=== PATIENT | male | born 1970 | race Caucasian/White ===

== ENCOUNTER 2018-06-04 10:05 | Emergency (ER) | payer BC ==
[~2018-06-04] VITALS: Ht 175.3 cm; Wt 100.2 kg
[2018-06-04 10:49] VITALS: BP 148/99
--- NOTE | 2018-06-04 10:54 | RAD ---
3 view study of the third digit of the left hand Clinical indications: Third digit got stuck in power tool today. Laceration injury. FINDINGS: Laceration injury of the distal aspect of the third digit is seen. No fracture or dislocation or lytic process is evident. IMPRESSION: Laceration injury without fracture. Electronically signed by: Rafi Ruvalcaba MD (06/04/2018 10:50 AM) [id number]
--- NOTE | 2018-06-04 11:18 | PHYS DOC ---
Past Medical History Past Medical History: Hypertension Past Surgical History: No Surgical History Alcohol Use: Occasionally Drug Use: Marijuana Adult General Chief Complaint Chief Complaint: FINGER INJURY HPI HPI 47-year-old male presents to ER with complaints of left middle finger injury. Patient reports this morning around 9 AM he smashed his finger between 2 objects and pulled back causing the skin on the tip of his finger to be pulled off. Patient denies any other injury. Patient is not sure if his tetanus is up-to-date and the past 5 years. Patient is right hand dominant. Patient denies any medications prior to arrival. Review of Systems Review of Systems Cardiovascular: No additional information not addressed in HPI [] GI: Denies nausea, vomiting Musculoskeletal: Reports pain tip of lt middle finger Integument: Reports avulsion type injury to tip of lt middle finger Neurologic: Denies focal weakness or sensory changes [] All other systems were reviewed and found to be within normal limits, except as documented in this note. Current Medications Current Medications Current Medications Medications (Trade) Dose Ordered Sig/Trung Start Time Stop Time Status Last Admin Dose Admin Acetaminophen/ Hydrocodone Bitart (Lortab 5/325) 1 tab 1X ONCE 06/04/18 11:30 06/04/18 11:31 DC 06/04/18 11:26 1 TAB Diphtheria/ Tetanus/Acell Pertussis (Boostrix) 0.5 ml ONCE ONCE 06/04/18 11:30 06/04/18 11:31 DC 06/04/18 11:27 0.5 ML Ibuprofen (Motrin) 800 mg 1X ONCE 06/04/18 11:30 06/04/18 11:31 DC 06/04/18 11:26 800 MG Lidocaine HCl (Lidocaine 1% 20ml Vial) 20 ml 1X ONCE 06/04/18 11:30 06/04/18 11:31 DC 06/04/18 11:34 20 ML Allergies Allergies Allergies Coded Allergies Type Severity Reaction Last Updated Verified No Known Drug Allergies 06/04/18 No Physical Exam Physical Exam Constitutional: Well developed, well nourished, no acute distress, non-toxic appearance. [] HENT: Normocephalic, atraumatic, oropharynx moist, nose normal. [] Eyes: Pupils equal, conjunctiva normal, no discharge. [] Neck: Normal range of motion, supple Cardiovascular:Heart rate regular Lungs & Thorax: Resp. equal/nonlabored. [] Skin: Warm, dry Extremities: No cyanosis, no clubbing, ROM lt hand/wrist, no edema. 2+ radial lt upper extremity. Avulsion to distal tip of lt middle finger with tip of nail bed removal- rest of nail still intact to nailbed- full ROM of lt fingers. Neurologic: Alert and oriented X 3, normal motor function, normal sensory function, no focal deficits noted. [] Psychologic: Affect normal, judgement normal, mood normal. [] Laceration Repair by me: 1210 Digital block Anesthesia: 1% lidocaine dorsal surface bilat. webbing of middle finger- 1% lidocaine 1 mL local injection at distal tip of finger as pt had some pain during wound cleanse following digital block Location: Lt distal tip of middle finger/distal edge of nail Tendon/Joint/Nerves: No injury- flexor tendon intact against resistance lt middle finger- full flexion Foreign body: None detected after copious irrigation and exploration Technique: No wound repair- avulsion wound distal tip of lt middle finger and end of nail- rest of nail still intact Patient's bleeding was easily controlled in the department and there is no indication of anemia. No evidence of compartment syndrome, neurologic injury, vascular injury, open joint, tendon laceration, or foreign body. Patient is appropriate for outpatient follow up. 24-48 hour wound check. Current Patient Data Vital Signs Vital Signs Date Time Temp Pulse Resp B/P (MAP) Pulse Ox O2 Delivery O2 Flow Rate FiO2 06/04/18 11:26 18 06/04/18 10:49 98.1 78 148/99 (115) 98 Room Air 98.1 EKG EKG [] Radiology/Procedures Radiology/Procedures PROCEDURE: FINGER(S) LEFT 3 view study of the third digit of the left hand Clinical indications: Third digit got stuck in power tool today. Laceration injury. FINDINGS: Laceration injury of the distal aspect of the third digit is seen. No fracture or dislocation or lytic process is evident. IMPRESSION: Laceration injury without fracture. Electronically signed by: Enma Ruvalcaba MD (06/04/2018 10:50 AM) [place] [id number] DICTATED and SIGNED BY: ENMA RUVALCABA MD DATE: 06/04/18 1050 Course & Med Decision Making Course & Med Decision Making Pertinent Imaging studies reviewed. (See chart for details) Pt was evaluated in the ER for an avulsion type injury to distal tip of left middle finger. Patient had x-ray with no acute findings for fracture. Patient had digital block with additional local lidocaine injection at injury location as he had some tenderness during wound cleanse. As this was an avulsion type injury there was no wound to be sutured. Patient had distal tip of the nail removed during injury however rest of nail was intact to nail bed. Patient had nonadherant drsg applied to avulsion site and aluminum splint applied. Patient tolerated procedure well and had minimal blood loss. Patient remained PMS intact prior to and following splint application. Discussed plans for home discharge with patient to follow-up with hand specialist for re-eval of wound and further care- will provide [facility]'s information on discharge paperwork. Patient's tetanus was updated while in the ER. Patient was provided with dose of pain medication and ibuprofen while in the ER. Will provide small quantity of pain medication with discharge paperwork. Education provided on signs and symptoms to return to ER. Discharge instructions were discussed. Dragon Disclaimer Dragon Disclaimer This electronic medical record was generated, in whole or in part, using a voice recognition dictation system. Departure Departure Impression: Primary Impression: Crush injury to finger Additional Impressions: Avulsion of fingernail of left hand Avulsion, finger tip Disposition: 01 HOME, SELF-CARE Condition: STABLE Referrals: UNKNOWN PCP NAME (PCP) Patient Instructions: Crush Injury, Fingers or Toes, Finger Avulsion, Nail Avulsion Injury Additional Instructions: As discussed call as soon as possible for follow-up with hand specialist [facility] [phone]. Ibuprofen as directed on container for pain relief as needed. Monitor wound for signs of infection- keep dry and clean until follow-up with hand specialist. You were updated on your tetanus while in the ER. Scripts Hydrocodone/Apap 5-325 (NORCO 5-325 TABLET) 1 Each Tablet 1 TAB PO PRN Q6HRS PRN for PAIN, #10 TAB 0 Refills Prov: CHARO AVENDAÑO APRN 06/04/18 Problem Qualifiers CHARO AVENDAÑO APRN Jun 04, 2018 11:18
[2018-06-04] MEDS ORDERED: DIPHTH,PERTUSS(ACELL),TET TOX 0.5 ML DISP.SYRIN. VAX IM ONE (11:30)
[2018-06-04] MEDS ORDERED: HYDROcodone/APAP 5/325MG 1 TAB TABLET PO ONE (11:30)
[2018-06-04] MEDS ORDERED: LIDOCAINE 1% Multi-Dose 20 ML VIAL. INJ ONE (11:30)
[2018-06-04] MEDS ORDERED: IBUPROFEN 400 MG TABLET. PO ONE (11:30)
[2018-06-04] MEDS ORDERED: HYDR-3164 PO (13:34)
== END 2018-06-04 13:48 | disposition home or self-care (01) ==
LOC: ER 10:05
DX: S61.303A Unspecified open wound of left middle finger with damage to nail, initial encounter (principal); I10 Essential (primary) hypertension; W23.0XXA Caught, crushed, jammed, or pinched between moving objects, initial encounter; Y93.89 Activity, other specified; Y92.89 Other specified places as the place of occurrence of the external cause; Y99.8 Other external cause status
CPT/HCPCS: 11730; 12001; 73140; 90471; 90715; 99284